=== PATIENT | female | born 1995 | race African-American/Black ===

== ENCOUNTER 2017-04-25 18:25 | Emergency (ER) | payer OTHER ==
[~2017-04-25] VITALS: Ht 160 cm; Wt 96.2 kg
[~2017-04-25 18:25] MED LIST: PNV1TABL25 PO
[2017-04-25 18:43] VITALS: BP 123/60
[2017-04-25] MEDS ORDERED: TETRACAINE 0.5% OPHTH SOLUTION 4ML BOTTLE. OS ONE (19:30)
--- NOTE | 2017-04-25 19:45 | PHYS DOC ---
Past Medical History Past Medical History: No Pertinent History Past Surgical History: Other Additional Past Surgical Histo: HERNIA Alcohol Use: None Drug Use: None Adult General Chief Complaint Chief Complaint: EARACHE/EAR PAIN HPI HPI Patient is a 22 year old female with no significant medical history currently 33 weeks 2 para 1 who presents today with left ear pain that began approximately a week ago. Patient just finished a dose of Z-Caio today. She feels her ear pain has not gotten better. Patient denies any fever coughing or congestion. OB is Dr. Mendoza and she follows up for OB care. Patient denies any urgency frequency or dysuria. Denies any back pain and abdominal pain or vaginal bleeding. Review of Systems Review of Systems Constitutional: Denies fever or chills [] Eyes: Denies change in visual acuity, redness, or eye pain [] HENT: left ear pain Respiratory: Denies cough or shortness of breath [] Cardiovascular: No additional information not addressed in HPI [] GI: See history of present illness : Denies dysuria or hematuria [] Musculoskeletal: Denies back pain or joint pain [] Integument: Denies rash or skin lesions [] Neurologic: Denies headache, focal weakness or sensory changes [] Endocrine: Denies polyuria or polydipsia [] Current Medications Current Medications Current Medications Medications (Trade) Dose Ordered Sig/Peña Start Time Stop Time Status Last Admin Dose Admin Tetracaine HCl (Tetracaine) 1 drop 1X ONCE 04/25/17 19:30 04/25/17 19:31 DC 04/25/17 19:29 1 DROP Allergies Allergies Allergies Coded Allergies Type Severity Reaction Last Updated Verified No Known Drug Allergies 04/03/17 No Physical Exam Physical Exam Constitutional: Well developed, well nourished, no acute distress, non-toxic appearance. [] HENT: Normocephalic, atraumatic, bilateral external ears normal, oropharynx moist, no oral exudates, nose normal. [] Left ear canal with moderate amount of clear fluid. No erythema. Eyes: PERRLA, EOMI, conjunctiva normal, no discharge. [] Neck: Normal range of motion, no tenderness, supple, no stridor. [] Cardiovascular:Heart rate regular rhythm, no murmur [] Lungs & Thorax: Bilateral breath sounds clear to auscultation [] Abdomen: Gravid abdomen. Bowel sounds normal, soft, no tenderness, no masses, no pulsatile masses. [] Skin: Warm, dry, no erythema, no rash. [] Back: No tenderness, no CVA tenderness. [] Extremities: No tenderness, no cyanosis, no clubbing, ROM intact, no edema. [] Neurologic: Alert and oriented X 3, normal motor function, normal sensory function, no focal deficits noted. [] Psychologic: Affect normal, judgement normal, mood normal. [] Current Patient Data Vital Signs Vital Signs Date Time Temp Pulse Resp B/P (MAP) Pulse Ox O2 Delivery O2 Flow Rate FiO2 04/25/17 18:43 97.9 86 18 99 Room Air 97.9 EKG EKG [] Radiology/Procedures Radiology/Procedures [] Course & Med Decision Making Course & Med Decision Making Pertinent Labs and Imaging studies reviewed. (See chart for details) This is a 33 week female patient who presents today with continued ear pain for the last 1 week. Patient has just finished a course of Z-Caio. Left ear exam shows patient has mild amount of clear fluid in the left TM but no infection. Reminded patient it is not unusual to have extra fluid collection in the ears especially after antibiotics. Recommended Tylenol for her pain. Recommended she consult with [employer] and see if she can be allowed to take a decongestant like Benadryl to help dry the extra fluids. Provided return precautions and discharged in stable condition. Consulted with pharmacy who stated we can try tetracaine eyedrops into patient's left ear in the ED only. We did put tetracaine in her ear with some relief. Dragon Disclaimer Dragon Disclaimer This electronic medical record was generated, in whole or in part, using a voice recognition dictation system. Departure Departure Impression: Primary Impression: Otalgia, left ear Disposition: HOME, SELF-CARE Condition: STABLE Referrals: NO PCP (PCP) follow up with your OBGY tomorrow Patient Instructions: Otalgia-Brief Additional Instructions: You were seen for left ear pain. Your left eardrum has some fluid in it. This is not unusual when people have had an upper respiratory infection or have taken antibiotics. Typically clears on its own. You are currently , consult with the [employer] and see if he/ she would let you use decongestant to help dry out some of the extra fluids in the ear drum. CARMEN HOLLIS APRN Apr 25, 2017 19:45
== END 2017-04-25 19:57 | disposition home or self-care (01) ==
LOC: ER 18:25
DX: O26.893 Other specified pregnancy related conditions, third trimester (principal); H92.02 Otalgia, left ear; Z3A.33 33 weeks gestation of pregnancy
CPT/HCPCS: 99282

== ENCOUNTER 2017-05-22 17:03 | Inpatient (IN) | payer OTHER ==
[~2017-05-22] VITALS: Ht 160 cm; Wt 95.7 kg
[2017-05-22 18:24] LABS: NEG OBC AMNIO NEG; POS OBC AMNIO POS
[2017-05-22] MEDS ORDERED: IV RINGERS,LACTATED 1000ML 1,000 ML IV SCH (18:32)
[2017-05-22] MEDS ORDERED: 0.9 % SODIUM CHLORIDE 10 ML DISP.SYRIN. IV PRN (18:45)
[2017-05-22] MEDS ORDERED: TERBUTALINE 1 MG/ML VIAL. SQ PRN (18:45)
[2017-05-22] MEDS ORDERED: OXYTOCIN 30 UNIT/500 ML PREMIX 500 ML IV PRN (18:45)
[2017-05-22] MEDS ORDERED: BUTORPHANOL 2 MG/ML VIAL. IV PRN (18:45)
[2017-05-22] MEDS ORDERED: LIDOCAINE 1% PF 30 ML VIAL. INJ PRN (18:45)
[2017-05-22] MEDS ORDERED: fentaNYL PF VIAL 100 MCG/2 ML VIAL IV PRN (18:45)
[2017-05-22 18:48] VITALS: BP 126/71
[2017-05-22 18:58] LABS: HEMATOCRIT 36.3 % (36.0-47.0); HEMOGLOBIN 11.9 g/dL (12.0-15.5); RED BLOOD COUNT 4.37 x10^6/uL (3.50-5.40); RED CELL DISTRIBUTION WIDTH 14.1 % (11.5-14.5); WHITE BLOOD COUNT 5.3 x10^3/uL (4.0-11.0)
[2017-05-22] MEDS ORDERED: OXYTOCIN 30 UNIT/500 ML PREMIX 500 ML IV ONE (23:00)
--- NOTE | 2017-05-23 01:33 | PDOC1 ---
OB - History Hx of Present Care: Good Care Ultrasounds: Normal mid trimester US Obstetrical Complications: None Medical Complications: None Past Family/Social History * Past Medical, Surgical, Family and Obstetric Histories reviewed from chart. Rubella: Immune RPR/VDRL: Negative GBS Status: Negative HBsAG: Negative OB - Chief Complaint & HPI Date of Admission: Date of Admission: May 22, 2017 at 17:03 Chief Complaint/History : 2 Para: 1 EGA: 37 Reason for admission: active labor Admission Nurse Assessment Rev: Yes Problems: OB - Admission Exam Physical Exam Vitals: VS - Last 72 Hours, by Label Date Time Temp Pulse Resp B/P (MAP) Pulse Ox O2 Delivery O2 Flow Rate FiO2 05/22/17 18:48 97.4 95 20 126/71 (89) 97.4 HEENT: Normal Heart: Regular Rate Lungs: Clear Abdomen: Gravid, Non tender, Soft Extremities: Edema Reflexes: Normal Cervical Dilatation: 4cm Effacement: 75% Station: -3 Membranes: Intact Heart Rate: Normal Accelerations: Accelerations Present Decelerations: No decelerations Contractions on Admission: < 5 Minutes Apart Intensity: Firm Text A: 37 wks IUP Active labor P: Admit for labor management. JHONNY AYOUB Jr, MD May 23, 2017 01:33
[2017-05-23] MEDS ORDERED: ROPIVacaine 0.2% IN 0.9%NACL PF 40 MG/20 ML DISP.SYRIN. ONE ×2 (01:58→02:00)
[2017-05-23] MEDS ORDERED: L&D EPIDURAL CASSETTE 100 ML EP ONE (01:58)
[2017-05-23] MEDS ORDERED: L&D EPIDURAL CASSETTE 100 ML PUMP.RESVR. EP ONE (02:00)
[2017-05-23] MEDS ORDERED: MAGNESIUM HYDROXIDE 2,400 MG/30 ML ORAL.SUSP. PO PRN (03:30)
[2017-05-23] MEDS ORDERED: HYDROCORTISONE 1% TOPICAL OINTMENT 30GM TUBE. TP PRN (03:30)
[2017-05-23] MEDS ORDERED: OXYTOCIN 30 UNIT/500 ML PREMIX 500 ML IV PRN (03:30)
[2017-05-23] MEDS ORDERED: MAG HYDROX/ALUMINUM HYD/SIMETH 30 ML ORAL.SUSP PO PRN (03:30)
[2017-05-23] MEDS ORDERED: diphenhydrAMINE HCL 25 MG CAPSULE PO PRN (03:30)
[2017-05-23] MEDS ORDERED: PHENYLEPH/MINERAL OIL/PETROLAT RECTAL OINTMENT 28GM TUBE. RC PRN (03:30)
[2017-05-23] MEDS ORDERED: SIMETHICONE 80 MG TAB.CHEW PO PRN (03:30)
[2017-05-23] MEDS ORDERED: BENZOCAINE 20% TOPICAL AEROSOL SPRAY 57GM CAN. TP PRN (03:30)
[2017-05-23] MEDS ORDERED: MMR per PROTOCOL. MC PRN (03:30)
[2017-05-23] MEDS ORDERED: ACETAMINOPHEN 325 MG TABLET. PO PRN (03:30)
[2017-05-23] MEDS ORDERED: 0.9 % SODIUM CHLORIDE 10 ML DISP.SYRIN. IV PRN (03:30)
[2017-05-23] MEDS ORDERED: ZOLPIDEM 5 MG TABLET. PO PRN (03:30)
--- NOTE | 2017-05-23 03:30 | PDOC ---
VAGINAL DELIVERY DATE DATE: 05/23/17 TIME: 03:28 : 2 Para: 2 EGA: 37 VAGINAL DELIVERY: VTX VACCUM ASSISTED: Yes NUMBER OF PULLS one NUMBER OF POP OFFS none MAXIMUM PRESSURE 600 mmhg PLACENTA: Spontaneous 06/29 SEX: Male WEIGHT Weight [ 3315 gm] Nuchal Cord: Yes, Times 1 Amniotic Fluid: Clear PAIN: Epidural EPISIOTOMY: No EXTENSION: Yes (2nd degree midline laceration) REPAIRED WITH 2-0 Vicryl EBL 300 ml COMPLICATIONS none CONDITION pt. stable Signs of Intrauterine Infectio: None Shoulder Dystocia: No Problems: JHONNY AYOUB Jr, MD May 23, 2017 03:30
[2017-05-23] MEDS: IBUPROFEN 800 MG TABLET. PO PRN ×2 (05:48→13:53)
[2017-05-23 06:50] VITALS: BP 107/59
[2017-05-23 07:30] VITALS: BP 105/60
[2017-05-23] MEDS: oxyCODONE/APAP 5/325 1 TAB TABLET PO PRN ×3 (08:58→18:12)
[2017-05-23] MEDS: DOCUSATE SODIUM 100 MG CAPSULE. PO PRN (08:58)
[2017-05-23 10:19] VITALS: BP 117/71
[2017-05-23 14:20] VITALS: BP 108/58
[2017-05-23 19:51] VITALS: BP 118/76
[2017-05-24 00:13] VITALS: BP 105/62
[2017-05-24] MEDS: oxyCODONE/APAP 5/325 1 TAB TABLET PO PRN (00:47)
[2017-05-24 04:37] LABS: BASO % 0 % (0-3); EOS % 2 % (0-3); HEMATOCRIT 31.9 % (36.0-47.0); HEMOGLOBIN 10.6 g/dL (12.0-15.5); LYMPH # 2.8 x10^3/uL (1.0-4.8); LYMPH % 32 % (24-48); MEAN CORPUSCULAR HEMOGLOBIN 27 pg (25-35); MEAN CORPUSCULAR HGB CONC 33 g/dL (31-37); MEAN CORPUSCULAR VOLUME 82 fL (79-100); MONO % 10 % (0-9); NEUT % 56 % (31-73); PLATELET COUNT 118 x10^3/uL (140-400); RED BLOOD COUNT 3.91 x10^6/uL (3.50-5.40); RED CELL DISTRIBUTION WIDTH 14.2 % (11.5-14.5); WHITE BLOOD COUNT 8.6 x10^3/uL (4.0-11.0)
[2017-05-24 05:44] VITALS: BP 126/77
[2017-05-24 07:29] LABS: RPR REFLEX Non Reactive (Non Reactive)
[2017-05-24] MEDS ORDERED: FERROUS SULFATE 325 MG TABLET. PO SCH (08:00)
[2017-05-24] MEDS: DOCUSATE SODIUM 100 MG CAPSULE. PO PRN ×2 (08:48→17:50)
[2017-05-24] MEDS: IBUPROFEN 800 MG TABLET. PO PRN ×2 (08:49→17:51)
--- NOTE | 2017-05-24 09:12 | PDOC ---
OB Progress Note Date of Service 05/24/17 Time of Evaluation 0911 Notes Pt feeling well. Breast feeding. No complaints. Lab Laboratory Tests Test 05/22/17 17:55 05/22/17 18:40 05/24/17 04:00 Amniotic Fluid Swab Test Negative White Blood Count 5.3 x10^3/uL (4.0-11.0) 8.6 x10^3/uL (4.0-11.0) Red Blood Count 4.37 x10^6/uL (3.50-5.40) 3.91 x10^6/uL (3.50-5.40) Hemoglobin 11.9 g/dL (12.0-15.5) 10.6 g/dL (12.0-15.5) Hematocrit 36.3 % (36.0-47.0) 31.9 % (36.0-47.0) Mean Corpuscular Volume 83 fL (79-100) 82 fL (79-100) Mean Corpuscular Hemoglobin 27 pg (25-35) 27 pg (25-35) Mean Corpuscular Hemoglobin Concent 33 g/dL (31-37) 33 g/dL (31-37) Red Cell Distribution Width 14.1 % (11.5-14.5) 14.2 % (11.5-14.5) Platelet Count 139 x10^3/uL (140-400) 118 x10^3/uL (140-400) RPR Titer Additional Testing Non reactive (Non Reactive) Neutrophils (%) (Auto) 56 % (31-73) Lymphocytes (%) (Auto) 32 % (24-48) Monocytes (%) (Auto) 10 % (0-9) Eosinophils (%) (Auto) 2 % (0-3) Basophils (%) (Auto) 0 % (0-3) Neutrophils # (Auto) 4.8 x10^3uL (1.8-7.7) Lymphocytes # (Auto) 2.8 x10^3/uL (1.0-4.8) Monocytes # (Auto) 0.8 x10^3/uL (0.0-1.1) Eosinophils # (Auto) 0.2 x10^3/uL (0.0-0.7) Basophils # (Auto) 0.0 x10^3/uL (0.0-0.2) Laboratory Tests Test 05/24/17 04:00 White Blood Count 8.6 x10^3/uL (4.0-11.0) Red Blood Count 3.91 x10^6/uL (3.50-5.40) Hemoglobin 10.6 g/dL (12.0-15.5) Hematocrit 31.9 % (36.0-47.0) Mean Corpuscular Volume 82 fL (79-100) Mean Corpuscular Hemoglobin 27 pg (25-35) Mean Corpuscular Hemoglobin Concent 33 g/dL (31-37) Red Cell Distribution Width 14.2 % (11.5-14.5) Platelet Count 118 x10^3/uL (140-400) Neutrophils (%) (Auto) 56 % (31-73) Lymphocytes (%) (Auto) 32 % (24-48) Monocytes (%) (Auto) 10 % (0-9) Eosinophils (%) (Auto) 2 % (0-3) Basophils (%) (Auto) 0 % (0-3) Neutrophils # (Auto) 4.8 x10^3uL (1.8-7.7) Lymphocytes # (Auto) 2.8 x10^3/uL (1.0-4.8) Monocytes # (Auto) 0.8 x10^3/uL (0.0-1.1) Eosinophils # (Auto) 0.2 x10^3/uL (0.0-0.7) Basophils # (Auto) 0.0 x10^3/uL (0.0-0.2) Medications Current Medications Sodium Chloride (Normal Saline Flush) 3 ml QSHIFT PRN IV AFTER MEDS AND BLOOD DRAWS; Start 05/22/17 at 18:45; Stop 05/23/17 at 07:38; Status DC Ringer's Solution 1,000 ml @ 125 mls/hr Q8H IV Last administered on 05/23/17t 01:29; Start 05/22/17 at 18:32 Butorphanol Tartrate (Stadol) 2 mg PRN Q1HR PRN IV Severe labor pain; Start 05/22/17 at 18:45; Stop 05/23/17 at 07:38; Status DC Fentanyl Citrate (Fentanyl 2ml Vial) 100 mcg PRN Q20MIN PRN IV Labor pain; Start 05/22/17 at 18:45; Stop 05/23/17 at 07:38; Status DC Terbutaline Sulfate (Brethine) 0.25 mg 1X PRN PRN SQ SEE COMMENTS; Start at 18:45; Stop 05/23/17 at 07:38; Status DC Lidocaine HCl 30 ml 1X PRN PRN INJ SEE COMMENTS Last administered on 05/23/17 03:23; Start 05/22/17 at 18:45; Stop 05/23/17 at 07:38; Status DC Oxytocin/Sodium Chloride 500 ml @ 0 mls/hr CONT PRN PRN IV Post delivery bleeding; Start 05/22/17 at 18:45 Oxytocin/Sodium Chloride 500 ml @ 0 mls/hr 1X ONCE IV Last administered on 05/22 23:48; Start 05/22/17 at 23:00; Stop 05/22/17 at 23:01; Status DC Ropivacaine/ Fentanyl/NS 100 ml @ As Directed STK-MED ONCE EP ; Start 05/23/17 at 01:58; Stop 05/23/17 at 01:59; Status DC Ropivacaine 40 mg STK-MED ONCE .ROUTE ; Start 05/23/17 at 01:58; Stop 05/23/17 at 01:59; Status DC Sodium Chloride (Normal Saline Flush) 10 ml QSHIFT PRN IV AFTER MEDS AND BLOOD DRAWS; Start 05/23/17 at 03:30 Oxytocin/Sodium Chloride 500 ml @ 62.5 mls/hr CONT PRN IV SEE I/O RECORD; Start 05/23/17 at 03:30; Stop 05/23/17 at 11:29; Status DC Acetaminophen (Tylenol) 650 mg PRN Q6HRS PRN PO MILD PAIN / TEMP; Start at 03:30 Ibuprofen (Motrin) 800 mg PRN Q8HRS PRN PO INFLAMMATION/PAIN PREVENTION Last administered on 05/24/17 08:49; Start 05/23/17 at 03:30 Docusate Sodium (Colace) 100 mg PRN BID PRN PO CONSTIPATION Last administered on 05/24/17 08:48; Start 05/23/17 at 03:30 Magnesium Hydroxide (Milk Of Magnesia) 2,400 mg PRN DAILY PRN PO CONSTIPATION; Start 05/23/17 at 03:30 Al Hydroxide/Mg Hydroxide (Mylanta Plus Xs) 30 ml PRN Q4HRS PRN PO HEARTBURN / GAS; Start 05/23/17 at 03:30 Simethicone (Gas-X) 80 mg PRN AFTMEALHC PRN PO GAS / BLOATING; Start 05/23/17 at 03:30 Diphenhydramine HCl (Benadryl) 25 mg PRN Q6HRS PRN PO ITCHING; Start 05/23/17 at 03:30 Benzocaine (Americaine) 1 spray PRN QID PRN TP TOPICAL PAIN Last administered on 05/23/17t 05:48; Start 05/23/17 at 03:30 Phenyleph/Shark Oil/Min Oil/Petrol (Preparation H) 1 butch PRN QID PRN RC RECTAL PAIN; Start 05/23/17 at 03:30 Hydrocortisone (Cortaid) 1 butch PRN QID PRN TP PERINEAL PAIN; Start 05/23/17 at 03:30 Ferrous Sulfate (Feosol) 325 mg BIDWMEALS PO ; Start 05/24/17 at 08:00 Zolpidem Tartrate (Ambien) 5 mg PRN QHS PRN PO INSOMNIA, MAY REPEAT X1; Start 05/23/17 at 03:30 Info (Do NOT chart on this placeholder) 1 ea 1X PRN PRN MC SEE COMMENTS; Start 05/23/17 at 03:30 Info (Do NOT chart on this placeholder) 1 ea 1X PRN PRN MC SEE COMMENTS; Start 05/23/17 at 03:30; Stop 05/23/17 at 07:38; Status DC Oxycodone/ Acetaminophen (Percocet 5/325) 2 tab PRN Q4HRS PRN PO MODERATE PAIN , SEVERE PAIN Last administered on 05/24/17t 00:47; Start 05/23/17 at 03:30 Ropivacaine/ Fentanyl/NS (Igbqiaak-Eegjl-TI 3 Mcg-0.1%) 100 ml STK-MED ONCE EP ; Start 05/23/17 at 02:00; Stop 05/23/17 at 09:04; Status DC Ropivacaine 40 mg STK-MED ONCE .ROUTE ; Start 05/23/17 at 02:00; Stop 05/23/17 at 09:04; Status DC Active Scripts Active Reported Tablet (Pnv Cmb#95/Ferrous Fumarate/Fa) 1 Each Tablet 1 Each PO DAILY Exam Abd: soft,non tender, fundus firm Assessment PPD# 1 s/p Plan of Care: Continue current Tx, Mgmt JHONNY AYOUB Jr, MD May 24, 2017 09:12
[2017-05-24 11:00] VITALS: BP 118/73
[2017-05-24 15:00] VITALS: BP 106/53
[2017-05-24 20:00] VITALS: BP 118/72
[2017-05-25] MEDS ORDERED: ROPIVacaine 0.2% IN 0.9%NACL PF 40 MG/20 ML DISP.SYRIN. ONE (01:39)
[2017-05-25] MEDS ORDERED: L&D EPIDURAL CASSETTE 100 ML EP ONE (01:39)
[2017-05-25] MEDS ORDERED: fentaNYL PF VIAL 100 MCG/2 ML VIAL ONE (01:39)
[2017-05-25 04:25] VITALS: BP 117/73
[2017-05-25 08:00] VITALS: BP 108/57
[2017-05-25] MEDS: IBUPROFEN 800 MG TABLET. PO PRN (09:11)
[2017-05-25] MEDS: DOCUSATE SODIUM 100 MG CAPSULE. PO PRN (09:11)
--- NOTE | 2017-05-25 09:38 | PDOC ---
OB Progress Note Date of Service 05/25/17 Time of Evaluation 0935 Notes Pt. feeling well. Pain controlled. Lab Laboratory Tests Test 05/24/17 04:00 White Blood Count 8.6 x10^3/uL (4.0-11.0) Red Blood Count 3.91 x10^6/uL (3.50-5.40) Hemoglobin 10.6 g/dL (12.0-15.5) Hematocrit 31.9 % (36.0-47.0) Mean Corpuscular Volume 82 fL (79-100) Mean Corpuscular Hemoglobin 27 pg (25-35) Mean Corpuscular Hemoglobin Concent 33 g/dL (31-37) Red Cell Distribution Width 14.2 % (11.5-14.5) Platelet Count 118 x10^3/uL (140-400) Neutrophils (%) (Auto) 56 % (31-73) Lymphocytes (%) (Auto) 32 % (24-48) Monocytes (%) (Auto) 10 % (0-9) Eosinophils (%) (Auto) 2 % (0-3) Basophils (%) (Auto) 0 % (0-3) Neutrophils # (Auto) 4.8 x10^3uL (1.8-7.7) Lymphocytes # (Auto) 2.8 x10^3/uL (1.0-4.8) Monocytes # (Auto) 0.8 x10^3/uL (0.0-1.1) Eosinophils # (Auto) 0.2 x10^3/uL (0.0-0.7) Basophils # (Auto) 0.0 x10^3/uL (0.0-0.2) Kleihauer-Betke Volume Blood 0 mL Kleihauer-Betke Stain 0.0000 RATIO Doses of RhIG Required (LAB) 1 Medications Current Medications Sodium Chloride (Normal Saline Flush) 3 ml QSHIFT PRN IV AFTER MEDS AND BLOOD DRAWS; Start 05/22/17 at 18:45; Stop 05/23/17 at 07:38; Status DC Ringer's Solution 1,000 ml @ 125 mls/hr Q8H IV Last administered on 05/23/17t 01:29; Start 05/22/17 at 18:32 Butorphanol Tartrate (Stadol) 2 mg PRN Q1HR PRN IV Severe labor pain; Start 05/22/17 at 18:45; Stop 05/23/17 at 07:38; Status DC Fentanyl Citrate (Fentanyl 2ml Vial) 100 mcg PRN Q20MIN PRN IV Labor pain; Start 05/22/17 at 18:45; Stop 05/23/17 at 07:38; Status DC Terbutaline Sulfate (Brethine) 0.25 mg 1X PRN PRN SQ SEE COMMENTS; Start at 18:45; Stop 05/23/17 at 07:38; Status DC Lidocaine HCl 30 ml 1X PRN PRN INJ SEE COMMENTS Last administered on 05/23/17 03:23; Start 05/22/17 at 18:45; Stop 05/23/17 at 07:38; Status DC Oxytocin/Sodium Chloride 500 ml @ 0 mls/hr CONT PRN PRN IV Post delivery bleeding; Start 05/22/17 at 18:45 Oxytocin/Sodium Chloride 500 ml @ 0 mls/hr 1X ONCE IV Last administered on 05/22 23:48; Start 05/22/17 at 23:00; Stop 05/22/17 at 23:01; Status DC Ropivacaine/ Fentanyl/NS 100 ml @ As Directed STK-MED ONCE EP ; Start 05/23/17 at 01:58; Stop 05/23/17 at 01:59; Status DC Ropivacaine 40 mg STK-MED ONCE .ROUTE ; Start 05/23/17 at 01:58; Stop 05/23/17 at 01:59; Status DC Sodium Chloride (Normal Saline Flush) 10 ml QSHIFT PRN IV AFTER MEDS AND BLOOD DRAWS; Start 05/23/17 at 03:30 Oxytocin/Sodium Chloride 500 ml @ 62.5 mls/hr CONT PRN IV SEE I/O RECORD; Start 05/23/17 at 03:30; Stop 05/23/17 at 11:29; Status DC Acetaminophen (Tylenol) 650 mg PRN Q6HRS PRN PO MILD PAIN / TEMP; Start at 03:30 Ibuprofen (Motrin) 800 mg PRN Q8HRS PRN PO INFLAMMATION/PAIN PREVENTION Last administered on 05/25/17 09:11; Start 05/23/17 at 03:30 Docusate Sodium (Colace) 100 mg PRN BID PRN PO CONSTIPATION Last administered on 05/25/17 09:11; Start 05/23/17 at 03:30 Magnesium Hydroxide (Milk Of Magnesia) 2,400 mg PRN DAILY PRN PO CONSTIPATION; Start 05/23/17 at 03:30 Al Hydroxide/Mg Hydroxide (Mylanta Plus Xs) 30 ml PRN Q4HRS PRN PO HEARTBURN / GAS Last administered on 05/25/17 09:10; Start 05/23/17 at 03:30 Simethicone (Gas-X) 80 mg PRN AFTMEALHC PRN PO GAS / BLOATING; Start 05/23/17 at 03:30 Diphenhydramine HCl (Benadryl) 25 mg PRN Q6HRS PRN PO ITCHING; Start 05/23/17 at 03:30 Benzocaine (Americaine) 1 spray PRN QID PRN TP TOPICAL PAIN Last administered on 05/23/17 05:48; Start 05/23/17 at 03:30 Phenyleph/Shark Oil/Min Oil/Petrol (Preparation H) 1 butch PRN QID PRN RC RECTAL PAIN; Start 05/23/17 at 03:30 Hydrocortisone (Cortaid) 1 butch PRN QID PRN TP PERINEAL PAIN; Start 05/23/17 at 03:30 Ferrous Sulfate (Feosol) 325 mg BIDWMEALS PO ; Start 05/24/17 at 08:00 Zolpidem Tartrate (Ambien) 5 mg PRN QHS PRN PO INSOMNIA, MAY REPEAT X1; Start 05/23/17 at 03:30 Info (Do NOT chart on this placeholder) 1 ea 1X PRN PRN MC SEE COMMENTS; Start 05/23/17 at 03:30 Info (Do NOT chart on this placeholder) 1 ea 1X PRN PRN MC SEE COMMENTS; Start 05/23/17 at 03:30; Stop 05/23/17 at 07:38; Status DC Oxycodone/ Acetaminophen (Percocet 5/325) 2 tab PRN Q4HRS PRN PO MODERATE PAIN , SEVERE PAIN Last administered on 05/24/17 00:47; Start 05/23/17 at 03:30 Ropivacaine/ Fentanyl/NS (Sapmpirv-Nspjp-ML 3 Mcg-0.1%) 100 ml STK-MED ONCE EP ; Start 05/23/17 at 02:00; Stop 05/23/17 at 09:04; Status DC Ropivacaine 40 mg STK-MED ONCE .ROUTE ; Start 05/23/17 at 02:00; Stop 05/23/17 at 09:04; Status DC Ropivacaine/ Fentanyl/NS 100 ml @ As Directed STK-MED ONCE EP ; Start 05/25/17 at 01:39; Stop 05/25/17 at 01:40; Status DC Fentanyl Citrate (Fentanyl 2ml Vial) 100 mcg STK-MED ONCE .ROUTE ; Start at 01:39; Stop 05/25/17 at 01:40; Status DC Ropivacaine 40 mg STK-MED ONCE .ROUTE ; Start 05/25/17 at 01:39; Stop 05/25/17 at 01:40; Status DC Active Scripts Active Reported Tablet (Pnv Cmb#95/Ferrous Fumarate/Fa) 1 Each Tablet 1 Each PO DAILY Exam Abd: soft, non tender, fundus firm Assessment PPD#2 s/p Plan of Care: See new orders (D/c home) JHONNY AYOUB Jr, MD May 25, 2017 09:38
--- NOTE | 2017-05-25 09:39 | DISCH ---
DISCHARGE INSTRUCTIONS Condition on Discharge Condition on Discharge: Stable Activity After Discharge Activity Instructions for Disc: Activity as tolerated Lifting Instructions after Dis: No heavy lifting Driving Instructions after Dis: Do not drive today Diet after Discharge Diet after Discharge: Regular Contacting the DRCollins after DC Call your doctor for: Concerns you may have Follow-Up Follow up with: Dr. Mendoza in 6 weeks. JHONNY MENDOZA Jr, MD May 25, 2017 09:39
[2017-05-25] MEDS ORDERED: IBUP-1060 PO (09:40)
[2017-05-25] MEDS ORDERED: OXYC-323 PO (09:40)
[2017-05-25] MEDS ORDERED: DOCU-109 PO (09:40)
[2017-05-25 11:27] VITALS: BP 114/64
== END 2017-05-25 12:30 | disposition home or self-care (01) | DRG 775 ==
LOC: 3 SO LND 17:03 → OBSVTOIN 18:32 → 3 NORTH 05-23 06:15
PROVIDERS: ADMIT Obstetrics & Gynecology; ATTEND Obstetrics & Gynecology
PROC: 10E0XZZ Delivery of Products of Conception, External Approach (ICD-10-PCS; principal; 2017-05-23)
PROC: 0KQM0ZZ Repair Perineum Muscle, Open Approach (ICD-10-PCS; 2017-05-23)
PROC: 3E0S3CZ (ICD-10-PCS; 2017-05-23)
PROC: 00HU33Z Insertion of Infusion Device into Spinal Canal, Percutaneous Approach (ICD-10-PCS; 2017-05-23)
PROC: 30233S1 Transfusion of Nonautologous Globulin into Peripheral Vein, Percutaneous Approach (ICD-10-PCS; 2017-05-23)
DX: O69.81X0 Labor and delivery complicated by cord around neck, without compression, not applicable or unspecified (principal); Z3A.37 37 weeks gestation of pregnancy; Z37.0 Single live birth; O70.1 Second degree perineal laceration during delivery
CPT/HCPCS: 36415; 84112; 85027; 85460; 85461; 86593; 86850; 86900; 86901; C1887; G0379; J2590; J2791; J2795; J7120